=== PATIENT | male | born 1950 | race Caucasian/White ===

== ENCOUNTER 2018-10-05 17:22 | Emergency (ER) | payer MEDICARE, OTHER ==
[2018-10-05] MEDS ORDERED: NA CHLORIDE 0.9% 500 ML ONE (18:24)
[2018-10-05 18:34] LABS: Absolute Lymphocytes (CBC) 1.5 K/uL (0.7-4.9); Absolute Monocytes 0.5 K/uL (0.1-1.3); Absolute Neutrophil 5.2 K/uL (1.8-8.0); Basophils % 0.4 % (0-1.3); Eosinophils % 0.5 % (0-4.4); Hematocrit 31.8 % (39.6-49.0); Lymphocytes % 20.7 % (15.3-44.8); MPV 10.1 fL (7.6-11.3); Monocytes % 6.9 % (3.3-12.3); RBC Red Blood Cell Count 3.41 M/uL (4.33-5.43)
[2018-10-05 18:51] LABS: Albumin 2.9 g/dL (3.4-5.0); Bilirubin Direct 0.4 mg/dL (0-0.2); Bilirubin Total 0.8 mg/dL (0.2-1.0); Potassium 4.7 mmol/L (3.5-5.1); Protein, Total 7.3 g/dL (6.4-8.2)
[2018-10-05] MEDS ORDERED: PANTOPRAZOLE 40 MG INJ ONE (19:43)
[2018-10-05] MEDS ORDERED: NA CHLORIDE 0.9% 250 ML ONE (19:43)
--- NOTE | 2018-10-05 20:00 | EDPHYS ---
Physician Documentation [facility] Name: Tyrel Angelo Age: 68 yrs Sex: Male : 1950 Arrival Date: 10/05/2018 Time: 17:26 Bed 23 Private MD: None, None ED Physician Estefany Godoy HPI: 10/05 18:28 This 68 yrs old Male presents to ER via Ambulatory with complaints of ma2 Abdominal Swelling. 18:28 Onset: The symptoms/episode began/occurred gradually, 4 week(s) ago. Severity of ma2 symptoms: At their worst the symptoms were moderate in the emergency department the symptoms are unchanged. The patient has experienced similar episodes in the past. hx of liver cancer does not take any medications here with generalized abd swelling for a month . Historical: - Allergies: 17:38 No Known Allergies; aa5 - PMHx: 17:38 Liver cancer; Diabetes - NIDDM; Hep B; Cirrhosis; Stomach ulcer; aa5 - PSHx: 17:38 Knee sx; aa5 - Immunization history:: Flu vaccine is not up to date. - Social history:: Smoking status: Patient/guardian denies using tobacco, Patient/guardian denies using alcohol, street drugs, The patient lives with family. - Ebola Screening: : No symptoms or risks identified at this time. - Family history:: not pertinent. ROS: 18:28 Constitutional: Negative for fever, chills, and weight loss. ma2 18:28 Abdomen/GI: Positive for abdominal distension, black/tarry stool, Negative for nausea, vomiting, and diarrhea, vomiting, diarrhea, rectal bleeding, bowel incontinence, acute changes. 18:28 All other systems are negative. Exam: 18:28 Constitutional: This is a well developed, well nourished patient who is awake, alert, ma2 and in no acute distress. 18:28 Chest/axilla: Normal chest wall appearance and motion. Nontender with no deformity. No lesions are appreciated. Cardiovascular: Regular rate and rhythm with a normal S1 and S2. No gallops, murmurs, or rubs. Normal PMI, no JVD. No pulse deficits. Respiratory: Lungs have equal breath sounds bilaterally, clear to auscultation and percussion. No rales, rhonchi or wheezes noted. No increased work of breathing, no retractions or nasal flaring. MS/ Extremity: Pulses equal, no cyanosis. Neurovascular intact. Full, normal range of motion. Neuro: Awake and alert, GCS 15, oriented to person, place, time, and situation. Cranial nerves II-XII grossly intact. Motor strength 5/5 in all extremities. Sensory grossly intact. Cerebellar exam normal. Normal gait. 18:28 Abdomen/GI: Inspection: distension, that is moderate, Palpation: soft, nontender, rebound tenderness, is not appreciated, voluntary guarding, is not appreciated, involuntary guarding, is not appreciated, Liver: is enlarged. Vital Signs: 17:40 BP 143 / 68; Pulse 98; Resp 18 S; Temp 98.4(TE); Pulse Ox 97% on R/A; Weight 70.31 kg aa5 (R); Height 5 ft. 8 in. (172.72 cm) (R); Pain 0/10; 20:12 BP 121 / 55; Pulse 89; Resp 18; Pulse Ox 96% on R/A; Pain 0/10; mg2 21:14 BP 131 / 71; Pulse 88; Resp 18; Temp 98.4; Pulse Ox 98% on R/A; Pain 0/10; mg2 17:40 Body Mass Index 23.57 (70.31 kg, 172.72 cm) aa5 MDM: 18:05 Patient medically screened. ma2 18:28 Differential Diagnosis moderate ascites and hepatocellular cancer . ma2 19:55 Data reviewed: vital signs, nurses notes. Counseling: I had a detailed discussion with ma2 the patient and/or guardian regarding: the historical points, exam findings, and any diagnostic results supporting the discharge/admit diagnosis, the presence of at least one elevated blood pressure reading (>120/80) during this emergency department visit, the need to transfer to another facility. ED course: need transfer for higher level of care no gi available in our facility d/t active gi bleed with current melena HB is 10 VS stable, . 19:58 Counseling: I had a detailed discussion with the patient and/or guardian regarding: the ma2 need to transfer to another facility. 20:07 ED course: accepted by dr. balderrama hospitalist . ma2 10/05 18:10 Order name: Basic Metabolic Panel; Complete Time: 19:09 mg2 10/05 18:10 Order name: CBC with Diff; Complete Time: 19: mg2 10/05 18:10 Order name: Creatinine for Radiology; Complete Time: : mg2 10/05 18:10 Order name: Hepatic Function; Complete Time: : mg2 10/05 18:10 Order name: Lipase; Complete Time: : mg2 10/05 19:22 Order name: PT-INR ma2 10/05 18:10 Order name: IV Saline Lock; Complete Time: 18: mg2 10/05 18:10 Order name: Labs collected and sent; Complete Time: 18: mg2 10/05 20:30 Order name: Urine Dipstick--Ancillary (enter results) mw2 Administered Medications: 18:19 Drug: NS 0.9% 500 ml Route: IV; Rate: bolus; Site: right antecubital; mg2 20:37 Follow up: Response: No adverse reaction; IV Status: Completed infusion mg2 19:41 Drug: Pantoprazole 8 mg/hr Route: IV; Rate: 25 ml/hr; Site: right antecubital; mg2 22:18 Follow up: Response: No adverse reaction; IV Status: Infusion continued upon transfer mg2 Disposition: 10/05/18 20:00 Transfer ordered to [facility]. Diagnosis is Melena. - Reason for transfer: Higher level of care. - Accepting physician is moreno. - Condition is Stable. - Problem is new. - Symptoms are unchanged. Signatures: Dispatcher [employer] Leonila Guthrie RN RN aa5 Estefany Godoy MD MD ma2 Chris Nieto RN RN mg2 Corrections: (The following items were deleted from the chart) : 20:00 10/05/2018 20:00 Transfer ordered to [facility]. Diagnosis is mg2 Melena. Reason for transfer: Higher level of care. Accepting physician is moreno. Condition is Stable. Problem is new. Symptoms are unchanged. ma2
--- NOTE | 2018-10-05 20:00 | ER ---
Nurse's Notes [facility] Name: Tyrel Angelo Age: 68 yrs Sex: Male : 1950 Arrival Date: 10/05/2018 Time: 17:26 Bed 23 Private MD: None, None Diagnosis: Melena Presentation: 10/05 17:38 Presenting complaint: Patient states: abdominal swelling and bloody stools that began aa5 yesterday. Pt denies SOB. 17:38 Transition of care: patient was not received from another setting of care. Onset of aa5 symptoms was September 2018. Risk Assessment: Do you want to hurt yourself or someone else? Patient reports no desire to harm self or others. Initial Sepsis Screen: Does the patient meet any 2 criteria? No. Patient's initial sepsis screen is negative. Does the patient have a suspected source of infection? No. Patient's initial sepsis screen is negative. Care prior to arrival: None. 17:38 Method Of Arrival: Ambulatory aa5 17:38 Acuity: GRADY 3 aa5 Historical: - Allergies: 17:38 No Known Allergies; aa5 - PMHx: 17:38 Liver cancer; Diabetes - NIDDM; Hep B; Cirrhosis; Stomach ulcer; aa5 - PSHx: 17:38 Knee sx; aa5 - Immunization history:: Flu vaccine is not up to date. - Social history:: Smoking status: Patient/guardian denies using tobacco, Patient/guardian denies using alcohol, street drugs, The patient lives with family. - Ebola Screening: : No symptoms or risks identified at this time. - Family history:: not pertinent. Screenin:02 Abuse screen: Denies threats or abuse. Denies injuries from another. Nutritional mg2 screening: No deficits noted. Tuberculosis screening: No symptoms or risk factors identified. Fall Risk IV access (20 points). Assessment: 20:13 General: Appears in no apparent distress. comfortable, Behavior is calm, cooperative. mg2 Pain: Denies pain. Neuro: Level of Consciousness is awake, alert, obeys commands, Oriented to person, place, time, situation. Cardiovascular: Capillary refill < 3 seconds Patient's skin is warm and dry. Respiratory: Airway is patent Respiratory effort is even, unlabored, Respiratory pattern is regular, symmetrical. GI: Abdomen is round distended, noted to have ascites, Bowel sounds present X 4 quads. Abd is soft and non tender X 4 quads. GI: Reports bloody stool. : No signs and/or symptoms were reported regarding the genitourinary system. EENT: No signs and/or symptoms were reported regarding the EENT system. Derm: Skin is intact, is healthy with good turgor, Skin is pale. Musculoskeletal: Circulation, motion, and sensation intact. Capillary refill < 3 seconds. 20:25 Reassessment: patient informed about the plan for transfer. mg2 21:27 Reassessment: report called to AGATA Thomas of [facility]. mg2 Vital Signs: 17:40 BP 143 / 68; Pulse 98; Resp 18 S; Temp 98.4(TE); Pulse Ox 97% on R/A; Weight 70.31 kg aa5 (R); Height 5 ft. 8 in. (172.72 cm) (R); Pain 0/10; 20:12 BP 121 / 55; Pulse 89; Resp 18; Pulse Ox 96% on R/A; Pain 0/10; mg2 21:14 BP 131 / 71; Pulse 88; Resp 18; Temp 98.4; Pulse Ox 98% on R/A; Pain 0/10; mg2 17:40 Body Mass Index 23.57 (70.31 kg, 172.72 cm) aa5 ED Course: 17:26 Patient arrived in ED. mr 17:26 None, None is Private Physician. mr 17:40 Arm band placed on. aa5 17:42 Triage completed. aa5 17:47 Chris Nieto RN is Primary Nurse. mg2 18:01 No provider procedures requiring assistance completed. Inserted saline lock: 20 gauge mg2 in right antecubital area, using aseptic technique. Blood collected. 18:05 Estefany Godoy MD is Attending Physician. ma2 20:32 Patient has correct armband on for positive identification. Placed in gown. Bed in low mg2 position. Call light in reach. Side rails up X2. Pulse ox on. NIBP on. Door closed. Warm blanket given. 22:17 Patient transferred, IV remains in place. mg2 Administered Medications: 18:19 Drug: NS 0.9% 500 ml Route: IV; Rate: bolus; Site: right antecubital; mg2 20:37 Follow up: Response: No adverse reaction; IV Status: Completed infusion mg2 19:41 Drug: Pantoprazole 8 mg/hr Route: IV; Rate: 25 ml/hr; Site: right antecubital; mg2 22:18 Follow up: Response: No adverse reaction; IV Status: Infusion continued upon transfer mg2 Outcome: 20:00 ER care complete, transfer ordered by MD. conner 22:18 Transferred by ground EMS to [facility], Transfer form completed. mg2 22:18 Condition: stable 22:18 Instructed on the need for transfer, Demonstrated understanding of instructions. 22:19 Patient left the ED. mg2 Signatures: Kianna Freitas BibLeonila RN RN aa5 Estefany Godoy MD MD ma2 Chris Nieto RN RN mg2
[2018-10-05 20:11] LABS: Protime INR 1.08
[2018-10-05 21:23] LABS: Urine Blood 2+ (NEG); Urine Glucose NEGATIVE (NEG); Urine Protein TRACE (NEG); Urine Specific Gravity 1.015 (1.005-1.030); Urine pH 5.5 (5.0-7.0)
== END 2018-10-05 22:19 | disposition short-term general hospital (02) ==
LOC: ER 17:22
DX: K92.1 Melena (principal); Z85.05 Personal history of malignant neoplasm of liver
CPT/HCPCS: 36415; 80048; 80076; 81003; 83690; 85025; 85610; 96361; 96365; 96366; 99285; C9113